=== PATIENT | female | born 1955 | race Caucasian/White ===

== ENCOUNTER 2020-09-13 22:18 | Emergency (ER) | payer OTHER ==
[~2020-09-13] VITALS: Ht 160 cm; Wt 88.6 kg
[2020-09-13] MEDS ORDERED: REST0.05 OP (22:37)
[2020-09-13] MEDS ORDERED: DETR4CAP PO (22:37)
[2020-09-13] MEDS ORDERED: ACIP1TAB PO (22:37)
[2020-09-13] MEDS ORDERED: SYST1SOL4 OP (22:40)
[2020-09-13] MEDS ORDERED: CELLUVISC (22:40)
[2020-09-13 23:13] LABS: BASO # 0.1 10^3/uL (0.0-0.2); BASO % 0.8 % (0.0-1.0); EOS # 0.3 10^3/uL (0.0-0.5); EOS % 3.7 % (0.0-3.0); HEMATOCRIT 41.3 % (36.0-47.0); HEMOGLOBIN 13.3 g/dl (12.0-15.5); LYMPH # 2.1 10^3/uL (1.5-5.0); LYMPH % 28.4 % (24.0-44.0); MEAN CORPUSCULAR HEMOGLOBIN 30.4 pg (27.0-33.0); MEAN CORPUSCULAR HGB CONC 32.2 g/dl (32.0-36.5); MEAN CORPUSCULAR VOLUME 94.3 fl (80.0-96.0); MONO # 0.8 10^3/uL (0.0-0.8); MONO % 10.2 % (0.0-5.0); NEUTROPHILS # 4.2 10^3/uL (1.5-8.5); NEUTROPHILS % 56.6 % (36.0-66.0); PLATELET COUNT, AUTOMATED 273 10^3/uL (150-450); RED BLOOD COUNT 4.38 10^6/uL (4.00-5.40); WHITE BLOOD COUNT 7.5 10^3/uL (4.0-10.0)
[2020-09-13 23:24] LABS: INR 0.9; PROTHROMBIN TIME 12.3 SECONDS (12.5-14.3)
--- NOTE | 2020-09-13 23:27 | REPVR ---
PROCEDURE INFORMATION: Exam: XR Chest, 1 View Exam date and time: 09/13/2020 11:16 PM Age: 65 years old Clinical indication: Chest pain TECHNIQUE: Imaging protocol: XR of the chest Views: 1 view. COMPARISON: No relevant prior studies available. FINDINGS: Lungs: Degree of lung inflation is normal. No evidence of pulmonary edema. No focal consolidation or parenchymal lung mass. Pleural space: No pleural effusion or pneumothorax. Heart/Mediastinum: Cardiac silhouette appears normal. No adenopathy or hilar mass. Bones/joints: Osseous structures show no concerning abnormality. 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 IMPRESSION: No acute or focal cardiopulmonary process. Electronically signed by: Troy Nazario On 09/13/2020 23:27:54 PM
[2020-09-13] MEDS ORDERED: KETOROLAC 30 MG/ML 1ML VIAL IV ONE (23:30)
[2020-09-13 23:43] LABS: ALBUMIN 3.3 GM/DL (3.2-5.2); ALT/SGPT 19 U/L (12-78); BILIRUBIN,DIRECT 0.1 MG/DL (0.0-0.2); BILIRUBIN,TOTAL 0.4 MG/DL (0.2-1.0); BLOOD UREA NITROGEN 17 MG/DL (7-18); CALCIUM LEVEL 8.9 MG/DL (8.8-10.2); CARBON DIOXIDE LEVEL 25 MEQ/L (21-32); CHLORIDE LEVEL 110 MEQ/L (98-107); CK-MB VALUE MASS 1.2 NG/ML (<3.6); CPK CREATINE PHOSPHOKINASE 71 U/L (26-192); GLOMERULAR FILTRATION RATE > 60.0 (>45); GLUCOSE, FASTING 147 MG/DL (70-100); LIPASE 102 U/L (73-393); MB/CK RELATIVE INDEX 1.69 (< OR =4); POTASSIUM SERUM 3.8 MEQ/L (3.5-5.1); SODIUM LEVEL 141 MEQ/L (136-145); TOTAL PROTEIN 6.7 GM/DL (6.4-8.2); TROPONIN I < 0.02 NG/ML (< 0.10)
[2020-09-13] MEDS ORDERED: FAMOTIDINE INJ 20MG/2ML VIAL (S0028 PER 1) IVP ONE (23:45)
[2020-09-14] MEDS ORDERED: PEPC1TAB5 PO (01:44)
[2020-09-14] MEDS ORDERED: INDO20CA3 PO (01:44)
[2020-09-14 02:15] VITALS: BP 109/59
--- NOTE | 2020-09-14 04:16 | ECGEPIP ---
[facility] - ED Test Date: 2020-09-13 Pat Name: PABLO VAIL Department: Room: - Gender: Female Learning And Development Manager: : [id number] Requested By: SHABANA NOLEN Order Number: [id number] Reading MD: Ruddy Ramsay Measurements Intervals [place] Rate: 92 P: 30 MD: 181 QRS: 4 QRSD: 65 T: 19 QT: 344 QTc: 427 Interpretive Statements SINUS RHYTHM MINIMAL VOLTAGE CRITERIA FOR LVH, CONSIDER NORMAL VARIANT BASELINE ARTIFACT AFFECTS INTERPRETATION NO PRIORS FOR COMPARISON Electronically Signed on 09-14-2020 4:15:46 EST by Ruddy Ramsay
== END 2020-09-14 02:26 | disposition home or self-care (01) ==
LOC: M ED 22:18
DX: M94.0 Chondrocostal junction syndrome [Tietze] (principal)
CPT/HCPCS: 71045; 80048; 80076; 82550; 82553; 83690; 84484; 85025; 85610; 93005; 93041; 94760; 96374; 96375; 99285; J1885